=== PATIENT | female | born 1985 | race Caucasian/White ===

== ENCOUNTER 2017-02-07 13:12 | Emergency (ER) | payer OTHER ==
--- NOTE | 2017-02-07 13:53 | RAD ---
HAND-LEFT 3 VIEWS HISTORY: Left thumb laceration. COMPARISONS: None. FINDINGS: 3 views of the left hand demonstrate normal bony mineralization. The visualized osseous structures appear to be appropriate. The joint spaces are well-maintained. No focal soft tissue abnormalities are seen. IMPRESSION: 1. Negative views of the left hand with no discrete fracture visualized.
[2017-02-07] MEDS ORDERED: TRANEXAMIC ACID 1,000 MG/10 ML VIAL IV ONE (14:01)
[2017-02-07] MEDS ORDERED: SURGICEL 3X4 1 EACH PACKET ONE (14:01)
[2017-02-07] MEDS ORDERED: [UNRECOGNIZED DRUG - SUPPLY] TP ONE (14:15)
== END 2017-02-07 14:53 | disposition home or self-care (01) ==
LOC: ED 13:12
DX: S61.012A Laceration without foreign body of left thumb without damage to nail, initial encounter (principal); W27.8XXA Contact with other nonpowered hand tool, initial encounter; Y93.G1 Activity, food preparation and clean up; Y92.000 Kitchen of unspecified non-institutional (private) residence as the place of occurrence of the external cause